=== PATIENT | male | born 1965 | race Caucasian/White ===

== ENCOUNTER 2018-01-09 08:36 | Outpatient (REF) | payer SELFPAY ==
[2018-01-09 12:35] LABS: Cholesterol 152 mg/dL (50-200); HDL Cholesterol 34 mg/dL (40-60); LDL CHOLESTEROL 109 mg/dL (<100); Triglyceride 105 mg/dL (30-150)
== END 2018-01-09 08:56 ==
LOC: NCHCN 08:36
PROVIDERS: PCP Internal Medicine; Visit Provider Nurse Practitioner Family
DX: E78.6 Lipoprotein deficiency (principal); E11.9 Type 2 diabetes mellitus without complications; E03.9 Hypothyroidism, unspecified; E66.9 Obesity, unspecified
CPT/HCPCS: 80061; 83721

== ENCOUNTER 2018-04-10 18:00 | Outpatient (REF) | payer SELFPAY ==
[2018-04-14 12:49] LABS: Lyme Ab w Rflx to Lyme Confirm Negative
== END 2018-04-10 18:20 ==
LOC: NCHCN 18:00
PROVIDERS: PCP Internal Medicine; Visit Provider Nurse Practitioner Family
DX: E11.9 Type 2 diabetes mellitus without complications (principal); E03.9 Hypothyroidism, unspecified; M43.9 Deforming dorsopathy, unspecified; E66.9 Obesity, unspecified; E78.6 Lipoprotein deficiency
CPT/HCPCS: 86618

== ENCOUNTER 2018-07-10 16:53 | Outpatient (REF) | payer SELFPAY ==
[2018-07-10 21:14] LABS: Anion Gap 12.2 mmol/L (3-11); BUN 19 mg/dL (7-18); CO2 24.8 mmol/L (21.0-32.0); CREATININE 1.32 mg/dL (0.70-1.30); Calcium 9.8 mg/dL (8.5-10.1); Chloride 101 mmol/L (98-107); Cholesterol 184 mg/dL (50-200); Estimated GFR 56.96 (mL/min/1.73m2); Glucose 177 mg/dL (70-100); HDL Cholesterol 32 mg/dL (40-60); LDL CHOLESTEROL 131 mg/dL (<100); Potassium 4.3 mmol/L (3.5-5.1); Sodium 138 mmol/L (136-145); TSH (W/Ref FT4) 2.31 uIU/mL (0.358-3.74); Triglyceride 150 mg/dL (30-150)
== END 2018-07-10 17:13 ==
LOC: NCHCN 16:53
PROVIDERS: PCP Internal Medicine; Visit Provider Nurse Practitioner Family
DX: E11.9 Type 2 diabetes mellitus without complications (principal); E03.9 Hypothyroidism, unspecified
CPT/HCPCS: 80048; 80061; 83721; 84443

== ENCOUNTER 2019-08-31 20:25 | Outpatient (REF) | payer SELFPAY ==
[2019-08-31 21:23] LABS: ALT 54 U/L (16-63); AST 19 U/L (15-37); Alkaline Phosphatase 66 U/L (46-116); Anion Gap 11.2 mmol/L (3-11); BUN 16 mg/dL (7-18); Bilirubin, Total 0.3 mg/dL (0.2-1.0); CO2 25.8 mmol/L (21.0-32.0); Calcium 9.7 mg/dL (8.5-10.1); Calculated LDL 76 mg/dL (<100); Chloride 101 mmol/L (98-107); Cholesterol 152 mg/dL (<200); Estimated GFR 57.75 (mL/min/1.73m2); Glucose 235 mg/dL (74-106); HDL Cholesterol 33 mg/dL (40-60); Potassium 4.1 mmol/L (3.5-5.1); Sodium 138 mmol/L (136-145); TSH (W/Ref FT4) 1.99 uIU/mL (0.36-3.74); Total Protein 7.1 g/dL (6.4-8.2); Triglyceride 218 mg/dL (<150)
== END 2019-08-31 20:45 ==
LOC: NCHCN 20:25
PROVIDERS: PCP Internal Medicine; Visit Provider Nurse Practitioner Family
DX: E11.9 Type 2 diabetes mellitus without complications (principal); E03.9 Hypothyroidism, unspecified; E86.9 Volume depletion, unspecified; E78.6 Lipoprotein deficiency; M43.6 Torticollis; E66.9 Obesity, unspecified
CPT/HCPCS: 80053; 80061; 84443

== ENCOUNTER 2020-09-13 08:28 | Outpatient (REF) | payer SELFPAY ==
[2020-09-13 14:23] LABS: ALT 41 U/L (16-63); AST 15 U/L (15-37); Albumin 3.8 g/dL (3.4-5.0); Alkaline Phosphatase 67 U/L (46-116); Anion Gap 10.9 mmol/L (3-11); BUN 16 mg/dL (7-18); Bilirubin, Total 0.4 mg/dL (0.2-1.0); CO2 26.1 mmol/L (21.0-32.0); CREATININE 1.2 mg/dL (0.70-1.30); Calculated LDL 71 mg/dL (<100); Chloride 104 mmol/L (98-107); Cholesterol 137 mg/dL (<200); Glucose 230 mg/dL (74-106); HDL Cholesterol 31 mg/dL (40-60); Potassium 4.6 mmol/L (3.5-5.1); Sodium 141 mmol/L (136-145); TSH (W/Ref FT4) 1.37 uIU/mL (0.36-3.74); Total Protein 6.8 g/dL (6.4-8.2); Triglyceride 175 mg/dL (<150)
== END 2020-09-13 08:29 | disposition home or self-care (01) ==
LOC: NCHCN 08:28
PROVIDERS: PCP Internal Medicine; Visit Provider Nurse Practitioner Family
DX: E03.9 Hypothyroidism, unspecified (principal); E66.9 Obesity, unspecified; E11.9 Type 2 diabetes mellitus without complications; E78.6 Lipoprotein deficiency
CPT/HCPCS: 80053; 80061; 84443

== ENCOUNTER 2021-11-14 16:07 | Outpatient (REF) | payer SELFPAY ==
[2021-11-14 15:43] LABS: ALT 47 U/L (16-63); AST 23 U/L (15-37); Albumin 3.9 g/dL (3.4-5.0); Alkaline Phosphatase 61 U/L (46-116); Anion Gap 8.6 mmol/L (3-11); BUN 17 mg/dL (7-18); Bilirubin, Total 0.5 mg/dL (0.2-1.0); CO2 28.4 mmol/L (21.0-32.0); CREATININE 1.2 mg/dL (0.70-1.30); Calcium 9.7 mg/dL (8.5-10.1); Calculated LDL 110 mg/dL (<100); Chloride 103 mmol/L (98-107); Cholesterol 169 mg/dL (<200); Glucose 174 mg/dL (74-106); HDL Cholesterol 36 mg/dL (40-60); Magnesium 1.8 mg/dL (1.8-2.4); Potassium 5.4 mmol/L (3.5-5.1); Sodium 140 mmol/L (136-145); Total Protein 6.8 g/dL (6.4-8.2); Triglyceride 119 mg/dL (<150); Vitamin B12 652 pg/mL (193-986)
== END 2021-11-14 16:08 | disposition home or self-care (01) ==
LOC: NCHCN 16:07
PROVIDERS: PCP Internal Medicine; Visit Provider Nurse Practitioner Family
DX: Z00.00 Encounter for general adult medical examination without abnormal findings (principal); E11.9 Type 2 diabetes mellitus without complications; E03.9 Hypothyroidism, unspecified; E66.9 Obesity, unspecified
CPT/HCPCS: 80053; 80061; 82607; 83735; 84443

== ENCOUNTER 2021-12-07 15:03 | Outpatient (REF) | payer SELFPAY ==
[2021-12-07 15:57] LABS: Potassium 4.8 mmol/L (3.5-5.1)
== END 2021-12-07 15:04 | disposition home or self-care (01) ==
LOC: NCHCN 15:03
PROVIDERS: PCP Internal Medicine; Visit Provider Nurse Practitioner Family
DX: E87.5 Hyperkalemia (principal)
CPT/HCPCS: 84132

== ENCOUNTER 2022-10-26 15:23 | Outpatient (REF) | payer SELFPAY ==
[2022-10-26 21:33] LABS: TSH (W/Ref FT4) 1.33 uIU/mL (0.36-3.74)
== END 2022-10-26 15:24 | disposition home or self-care (01) ==
LOC: NCHCN 15:23
PROVIDERS: PCP Internal Medicine; Visit Provider Nurse Practitioner Family
DX: E03.9 Hypothyroidism, unspecified (principal); E11.9 Type 2 diabetes mellitus without complications; E78.5 Hyperlipidemia, unspecified
CPT/HCPCS: 84443

== ENCOUNTER 2023-06-24 14:05 | Outpatient (REF) | payer SELFPAY ==
[2023-06-24 15:07] LABS: Hemoglobin A1C 7.1 % (<5.7)
== END 2023-06-24 14:06 | disposition home or self-care (01) ==
LOC: NCHCN 14:05
PROVIDERS: PCP Internal Medicine; Visit Provider Nurse Practitioner Family
DX: E11.9 Type 2 diabetes mellitus without complications (principal)
CPT/HCPCS: 83036

== ENCOUNTER 2023-09-25 09:12 | Outpatient (REF) | payer SELFPAY ==
[2023-09-25 15:09] LABS: ALT 40 U/L (16-63); AST 14 U/L (15-37); Alkaline Phosphatase 60 U/L (46-116); Anion Gap 7.5 mmol/L (3-11); BUN 22 mg/dL (7-18); Bilirubin, Total 0.3 mg/dL (0.2-1.0); CO2 29.5 mmol/L (21.0-32.0); CREATININE 1.3 mg/dL (0.70-1.30); Calculated LDL 86 mg/dL (<100); Chloride 105 mmol/L (98-107); Cholesterol 147 mg/dL (<200); Estimated GFR 64.07 (mL/min/1.73m2); Glucose 213 mg/dL (74-106); HDL Cholesterol 36 mg/dL (40-60); Magnesium 1.8 mg/dL (1.8-2.4); Potassium 4.9 mmol/L (3.5-5.1); Sodium 142 mmol/L (136-145); TSH (W/Ref FT4) 2.44 uIU/mL (0.36-3.74); Total Protein 6.9 g/dL (6.4-8.2); Triglyceride 126 mg/dL (<150); Vitamin B12 658 pg/mL (193-986)
[2023-09-25 15:28] LABS: COMMENT (LAB VIEW ONLY) 152.34 mg/dL; Microalb ug/mg Crea 1.9 ug/mg Cr
[2023-09-25 15:30] LABS: Hemoglobin A1C 7.7 % (<5.7)
== END 2023-09-25 09:13 | disposition home or self-care (01) ==
LOC: NCHCN 09:12
PROVIDERS: PCP Nurse Practitioner Family; Visit Provider Nurse Practitioner Family
DX: E03.9 Hypothyroidism, unspecified (principal); E78.6 Lipoprotein deficiency; E11.9 Type 2 diabetes mellitus without complications; E66.9 Obesity, unspecified
CPT/HCPCS: 80053; 80061; 82043; 82570; 82607; 83036; 83735; 84443

== ENCOUNTER 2024-11-02 16:08 | Outpatient (REF) | payer SELFPAY ==
[2024-11-02 22:57] LABS: Anion Gap 7.9 mmol/L (3-11); BUN 16 mg/dL (7-18); CO2 29.1 mmol/L (21.0-32.0); Calcium 9.3 mg/dL (8.5-10.1); Chloride 105 mmol/L (98-107); Estimated GFR 77.81 (mL/min/1.73m2); Glucose 129 mg/dL (74-106); Potassium 4.4 mmol/L (3.5-5.1); Sodium 142 mmol/L (136-145); TSH (W/Ref FT4) 2.37 uIU/mL (0.36-3.74)
== END 2024-11-02 16:09 | disposition home or self-care (01) ==
LOC: NCHCN 16:08
PROVIDERS: PCP Nurse Practitioner Family; Visit Provider Nurse Practitioner Family
DX: E03.9 Hypothyroidism, unspecified (principal); E11.9 Type 2 diabetes mellitus without complications
CPT/HCPCS: 80048; 84443